=== PATIENT | male | born 1950 | race Hispanic/Latino ===

== ENCOUNTER 2019-12-12 11:11 | Emergency (ER) | payer MEDICARE ==
[2019-12-12] MEDS ORDERED: SODIUM CHLORIDE 0.9% 1000 ML 1,000 ML IV ONE ×2 (11:41→14:27)
--- NOTE | 2019-12-12 11:43 | Emergency Department Report ---
Chief Complaint: Hyperglycemia Stated Complaint: PASSED OUT/LBP Time Seen by Provider: 12/12/19 11:42 - HPI History of Present Illness: 69 y/o male with dm, eoth use, htn, cant remembe rmeds, presents w weakness, body aches, hypotension and syncope no pe/dvt risk factors gcs [address] head labs ekg main side ivf ordered Vital Signs 12/12/19 11:20 Temperature 98.0 F Pulse Rate 62 Respiratory 22 Rate Blood Pressure 83/48 O2 Sat by Pulse 97 Oximetry - Exam Vital Signs: Vital Signs 12/12/19 11:20 Temperature 98.0 F Pulse Rate 62 Respiratory 22 Rate Blood Pressure 83/48 O2 Sat by Pulse 97 Oximetry MSE screening note: Focused history and physical exam performed. Due to findings the following was ordered: ED Disposition for MSE Condition: Stable
[2019-12-12 13:10] LABS: Hemoglobin 9.4 gm/dl (11.8-15.2); Mean Corpuscular HGB Conc 32 % (32-34); Mean Corpuscular Volume 89 fl (84-94); Platelet Count 119 K/mm3 (140-440); Red Blood Count 3.25 M/mm3 (3.65-5.03); Red Cell Distribution Width 17.6 % (13.2-15.2)
[2019-12-12 13:23] LABS: INR 1.01 (0.87-1.13)
--- NOTE | 2019-12-12 13:32 | Cat Scan Report ---
CT head without contrast INDICATION : syncope. TECHNIQUE: Axial imaging performed from the skull apex through the skull base without the use of con trast. All CT scans at this location are performed using CT dose reduction for ALARA by means of aut omated exposure control. COMPARISON: None FINDINGS: Parenchyma: No acute intracranial hemorrhage or parenchymal abnormality. There is a right frontal hy podensity which is fairly well-defined and likely reflects subacute/chronic ischemic change. Ventricles: Ventricles are normal in size and appear symmetric. Soft tissues: Soft tissues including the orbits appear normal. Bones: No acute osseous abnormality. Sinuses: Sinuses and mastoid air cells are clear. IMPRESSION: No acute abnormality. Signer Name: Serafin Macdonald MD Signed: 12/12/2019 1:27 PM Workstation Name: [id number]
[2019-12-12 13:35] LABS: Alanine Aminotransferase 28 units/L (7-56); Albumin 4.1 g/dL (3.9-5); BUN/Creatinine Ratio 9; Blood Urea Nitrogen 14 mg/dL (9-20); Calcium 8.9 mg/dL (8.4-10.2); Hemolysis Index 2
[2019-12-12] MEDS ORDERED: SODIUM CHLORIDE 0.9% 1000 ML 1,000 ML ONE (14:50)
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
[2019-12-12] MEDS ORDERED: IBUPROFEN 600 MG TAB PO ONE (15:45)
[2019-12-12 16:02] VITALS: BP 105/69
[2019-12-12 18:08] LABS: Bilirubin,Urine Small (Negative); Blood,Urine Negative (Negative); Color,Urine Amber (Yellow)
[2019-12-12 18:09] LABS: Mucus,Urine Few /HPF
== END 2019-12-12 18:15 | disposition home or self-care (01) ==
LOC: ED 11:11
DX: R55 Syncope and collapse (principal); R42 Dizziness and giddiness; I10 Essential (primary) hypertension; E11.9 Type 2 diabetes mellitus without complications; Z86.19 Personal history of other infectious and parasitic diseases; Z79.899 Other long term (current) drug therapy; Z79.84 Long term (current) use of oral hypoglycemic drugs; Z88.0 Allergy status to penicillin
CPT/HCPCS: 36415; 70450; 80053; 81001; 82550; 82962; 83735; 84443; 84484; 85027; 85610; 93005; 93010; 96360; 99285; J7030; 80320; G0480